=== PATIENT | female | born 1985 | race Two or more races ===

== ENCOUNTER 2019-04-18 10:55 | Emergency (ER) | payer OTHER ==
[2019-04-18 11:12] VITALS: BP 133/89; PULSE 68; TEMP 98.4; BMI 27.4
[2019-04-18] MEDS ORDERED: KETOROLAC TROMETHAMINE 60 MG/2 ML VIAL IM ONE (11:42)
[2019-04-18] MEDS ORDERED: KETOROLAC TROMETHAMINE 60 MG/2 ML VIAL ONE (11:44)
--- NOTE | 2019-04-18 12:14 | PDOC ---
Attending Attestation - Resident Resident Name: Nicko Huff - HPI HPI: 04/18/19 12:09 Pt presents to the ED complaining of a three week history of cough productive of green sputum. Denies fevers. Presents today because she is having R sided pleuritic flank pain. Denies nausea, vomiting or urinary complaints. - Physicial Exam PE: 04/18/19 12:13 Agree with resident exam. Gen: alert, NAD. pulm: CTA b/l, with good air entry. + point tenderness over L posterior intercostal muscles - Medical Decision Making 04/18/19 12:14 Pt presents to the ED with pleuritic upper back pain after long standing URI. No signs suspcious for PE or ACS. Will check cxr to rule out ptx, rib fx or PNA , give pain control, likely discharge if negative. 04/18/19 12:14 04/18/19 12:15
--- NOTE | 2019-04-18 12:19 | PDOC ---
History of Present Illness - General Chief Complaint: Respiratory Stated Complaint: COUGH Time Seen by Provider: 04/18/19 11:03 - History of Present Illness Initial Comments: 04/18/19 11:48 HPI: 33 y/o with hx of asthma presenting with cough x2.5 weeks and right flank pain x4 days. She states the cough was initially non-productive and worse in the evening and when sleeping. She attempted nebs treatment and had seen an urgent care and was given a steroid pack but that did not alleviate symptoms. She denies fever, chills, chest pain, SOB, palpitations, n/v, abd pain. Cough is not exertional. She denies rhinorrhea, sore throat, congestion, MODI. She states 4 days ago her cough became productive of green sputum and she developed left sided flank/back pain without radiation. She denies rash, skin changes, lumps, dysuria, hematuria. PMHx: as noted above ROS: as noted SHx: Denies tobacco use; occasional alcohol use; no rec drugs Allergies: NKDA ROS: GENERAL/CONSTITUTIONAL: No fever or chills. No weakness. HEAD, EYES, EARS, NOSE AND THROAT: No change in vision. No ear pain or discharge. No sore throat. CARDIOVASCULAR: No chest pain or shortness of breath RESPIRATORY: +cough; no wheezing, or hemoptysis. GASTROINTESTINAL: No nausea, vomiting, diarrhea or constipation. GENITOURINARY: No dysuria, frequency, or change in urination. MUSCULOSKELETAL: No joint or muscle swelling or pain. No neck or back pain. SKIN: No rash NEUROLOGIC: No headache, vertigo, loss of consciousness, or change in strength/ sensation. ENDOCRINE: No increased thirst. No abnormal weight change HEMATOLOGIC/LYMPHATIC: No anemia, easy bleeding, or history of blood clots. ALLERGIC/IMMUNOLOGIC: No hives or skin allergy. PE: GENERAL: Awake, alert, and fully oriented, no acute distress HEAD: No signs of trauma, normocephalic, atraumatic EYES: EOMI, sclera anicteric, conjunctiva clear ENT: Auricles normal inspection, hearing grossly normal, nares patent, oropharynx clear without exudates. Moist mucosa NECK: Normal ROM, no lymphadenopathy LUNGS: No increased work of breathing, symmetrical chest rise, clear to auscultation bilaterally, no wheezes, crackles or rhonchi HEART: Regular rate and rhythm, normal S1 and S2, no murmurs, peripheral pulses 2+ and equal bilaterally. ABDOMEN: Soft, nondistended, nontender, normoactive bowel sounds. No guarding, no rebound. No masses. No CVAT EXTREMITIES: Normal inspection, Normal range of motion, no edema. No clubbing or cyanosis. NEUROLOGICAL: Cranial nerves II through XII grossly intact. Normal speech, normal gait, no focal sensorimotor deficits SKIN: Warm, Dry, normal turgor, no rashes or lesions noted Past History - Past Medical History Allergies/Adverse Reactions: Allergies Allergy/AdvReac Type Severity Reaction Status Date / Time latex Allergy Verified 04/18/19 11:06 Penicillins Allergy Verified 04/18/19 11:06 Home Medications: Ambulatory Orders Albuterol Sulfate Inhaler - [Ventolin HFA Inhaler -] 2 inh IH Q4H PRN #1 inh Norethindrone AC-Eth Estradiol [Loestrin 21 1-20 Tablet] 1 each PO DAILY Benzonatate [Tessalon Pearls -] 100 mg PO TID #21 capsule 04/18/19 Asthma: Yes COPD: No - Psycho Social/Smoking Cessation Hx Smoking Status: No Smoking History: Never smoked Number of Cigarettes Smoked Daily: 0 Hx Alcohol Use: No Drug/Substance Use Hx: No *Physical Exam - Vital Signs Last Vital Signs Temp Pulse Resp BP Pulse Ox 98.4 F 68 15 133/89 98 04/18/19 11:02 04/18/19 11:02 04/18/19 11:02 04/18/19 11:02 04/18/19 11:02 ED Treatment Course - RADIOLOGY Radiology Studies Ordered: Category Date Time Status CHEST PA & LAT [RAD] Stat Radiology 04/18/19 11:42 Ordered Medical Decision Making - Medical Decision Making 04/18/19 12:18 33 y/o with hx of asthma presenting with cough x2.5 weeks now productive over the past 4 days with right flank/back pain x4 days. VSS, AF. PE unremarkable. Will rule out PNA. Pain likely due to MSK strain from coughing -cxr -toradol 04/18/19 12:28 cxr negative pain tolerable following medication discussed results with patient and she is comfortable with DC and return pcxns Discharge - Discharge Information Problems reviewed: Yes Clinical Impression/Diagnosis: Cough, Musculoskeletal pain Condition: Good Disposition: HOME - Additional Discharge Information Prescriptions: Benzonatate [Tessalon Pearls -] 100 mg PO TID #21 capsule - Follow up/Referral Referrals: Vincent Vazquez MD [Primary Care Provider] - - Patient Discharge Instructions Patient Printed Discharge Instructions: DI for Cough -- Adult, DI for Musculoskeletal Pain Additional Instructions: Return to the ED if there is concern for new or worsening symptoms including fever, coughing blood, significant chest pain. You may followup with your PCP as needed. Please followup for resolution of symptoms as well as additional management You may take tylenol 650mg every 6-8hours and mtorin 600mg every 6-8 hours as needed for pain control. You may take the tessalon perlsami that was sent to you pharmacy - Post Discharge Activity
== END 2019-04-18 12:39 | disposition home or self-care (01) ==
LOC: FER 10:55
PROC: 3E0233Z Introduction of Anti-inflammatory into Muscle, Percutaneous Approach (ICD-10-PCS; principal; 2019-04-18)
DX: M79.18 Myalgia, other site (principal); J45.909 Unspecified asthma, uncomplicated; R05 Cough; Z88.0 Allergy status to penicillin; Z91.040 Latex allergy status
CPT/HCPCS: 71046-TC-FY; 99281-25

== ENCOUNTER 2019-04-20 17:49 | Emergency (ER) | payer OTHER ==
[2019-04-20 19:00] VITALS: BP 134/78; PULSE 72; TEMP 98.4; BMI 28.3
--- NOTE | 2019-04-20 22:05 | PDOC ---
Documentation entered by Rebecca Magallon SCRIBE, acting as scribe for Jose Mckeon MD. Jose Mckeon MD: This documentation has been prepared by the maguiibe, Rebecca Magallon SCRIBE, under my direction and personally reviewed by me in its entirety. I confirm that the documentation accurately reflects all work , treatment, procedures, and medical decision making performed by me. History of Present Illness - General Chief Complaint: Pain, Acute Stated Complaint: RIGHT SIDE PAIN History Source: Patient Exam Limitations: No Limitations - History of Present Illness Initial Comments: 04/20/19 20:39 The patient is a 33-year-old female who presents to the emergency department with worsening right flank pain. The patient reports shes been having 3 weeks of cough. The patient reports following up at an Urgent Care last Thursday was prescribed Prednisone for possible asthma exacerbation. The patient reports being compliant for 3/4 days however, she wasnt having any shortness of breath , so she stopped the medication. The patient reports the cough, and the right- sided flank pain worsened, so she was seen at the ER on 04/18. The patient reports given medication for the pain, with relief, and discharged home with Rey Valentine. The patient reports the flank pain has been worsening, with no relief with Ibuprofen. Denies shortness of breath. Denies nausea. Denies urinary symptoms. Denies a family history of Kidney stones. PAST MEDICAL HISTORY: asthma PAST SURGICAL HISTORY: no significant history FAMILY HISTORY: no pertinent history SOCIAL HISTORY: Pt lives with family and is employed. MEDICATIONS: reviewed ALLERGIES: As per nursing notes Review of system: General: No fevers or chills, no weakness, no weight loss HEENT: No change in vision. No sore throat,. No ear pain CardioVascular: No chest pain or shortness of breath Respiratory: +cough. No wheezing. Gastrointestinal: +right flank pain. no nausea, vomiting, diarrhea or constipation, No rectal bleeding Genitourinary: No dysuria, hematuria, or frequency Musculoskeletal: No joint or muscle pain or swelling Neurologic: No headache, vertigo, dizziness or loss of consciousness Psychiatric: nor depression Skin: No rashes or easy bruising Endocrine: no increased thirst or abnormal weight change Allergic: no skin or latex allergy All other systems reviewed and normal Physical exam: General: Well-nourished well-developed individual, no acute distress HEENT: Throat: Normal, tonsils normal, no erythema or exudate Neck: Supple, no meningeal signs, no lymphadenopathy Eyes: Pupils equal reactive and round, extraocular motion intact Chest: Nontender to palpation Cardiac: S1-S2 normal, regular rate and rhythm, no murmurs rubs or gallops Respiratory: Lungs clear to auscultation bilateral Abdomen: +no right CVA tenderness, Right flank tenderness. No abd tenderness. Soft. Extremities: Warm, dry, no cyanosis, clubbing, or edema Skin: No rashes Neuro: Alert and oriented x3, nonfocal exam, grossly intact, normal gait Psych: Normal mood and affect 04/20/19 22:02 Assessment and plan: This is a 33-year-old female who comes in complaining of right flank pain. Patient has had a upper respiratory tract infection for several weeks and now has right flank pain. Most likely this is secondary to her coughing and a pulled muscle however I will get a stone protocol CT to rule out a kidney stone and check her urine. Patient did have a chest x-ray yesterday that was negative for any acute pathology. Patient also is on Tessalon Perles and a anti-inflammatory for the pain. CAT scan was negative for kidney stones. It does show a small adrenal adenoma which patient was made aware of and given a copy of her CAT scan and told to follow it up with her primary care doctor. Patient discharged home told to take an anti-inflammatory and follow-up with her primary care doctor Past History - Past Medical History Allergies/Adverse Reactions: Allergies Allergy/AdvReac Type Severity Reaction Status Date / Time latex Allergy Verified 04/20/19 19:02 Penicillins Allergy Verified 04/20/19 19:02 Home Medications: Ambulatory Orders Norethindrone AC-Eth Estradiol [Loestrin 21 1-20 Tablet] 1 each PO DAILY Asthma: Yes COPD: No - Psycho Social/Smoking Cessation Hx Smoking Status: No Smoking History: Never smoked Number of Cigarettes Smoked Daily: 0 Hx Alcohol Use: Yes (OCASIONAL) Drug/Substance Use Hx: No *Physical Exam - Vital Signs Last Vital Signs Temp Pulse Resp BP Pulse Ox 98.4 F 72 16 134/78 100 04/20/19 17:49 04/20/19 17:49 04/20/19 17:49 04/20/19 17:49 04/20/19 17:49 ED Treatment Course - RADIOLOGY Radiology Studies Ordered: Category Date Time Status SPIRAL- RENAL-STONE CT [CT] Stat CT Scan 04/20/19 20:32 Completed Discharge - Discharge Information Problems reviewed: Yes Clinical Impression/Diagnosis: Musculoskeletal pain, Right flank pain Condition: Stable - Admission No - Follow up/Referral - Patient Discharge Instructions Additional Instructions: For the pain take naproxen 2 tablets twice a day with food. Take a copy of your CAT scan to your primary care doctor in follow-up of the adrenal adenoma. Return to the emergency department immediately with ANY new, persistent or worsening symptoms. Continue any medications as previously prescribed by your physician. You should follow up with your primary doctor as soon as possible regarding today's emergency department visit. . Please make sure your doctor reviews the results of your emergency evaluation. Thank you for coming to the Emergency Department today for your care. It was a pleasure to see you today. Please note that your evaluation is INCOMPLETE until you follow-up with your doctor. - Post Discharge Activity
== END 2019-04-20 22:46 | disposition home or self-care (01) ==
LOC: FER 17:49
DX: M79.10 Myalgia, unspecified site (principal); R10.31 Right lower quadrant pain; Z88.0 Allergy status to penicillin; Z91.040 Latex allergy status
CPT/HCPCS: 74176-TC; 81003; 81015; 99283-25

== ENCOUNTER 2021-04-27 14:20 | Emergency (ER) | payer OTHER ==
[2021-04-27 14:42] VITALS: BMI 26.6
[2021-04-27] MEDS ORDERED: SODIUM CHLORIDE 0.9% 500 ML INFUS.BAG IV ONE (15:30)
[2021-04-27] MEDS ORDERED: ONDANSETRON 4 MG/2 ML VIAL IVPUSH ONE (15:30)
[2021-04-27] MEDS ORDERED: ACETAMINOPHEN 1000 MG/100 ML VIAL IVPB ONE (15:31)
[2021-04-27] MEDS ORDERED: ACETAMINOPHEN INJECTION 100 ML IVPB ONE (16:15)
[2021-04-27] MEDS ORDERED: ONDANSETRON 4 MG/2 ML VIAL ONE (16:15)
[2021-04-27 16:41] LABS: BASO % 0.3 % (0-2.0); HEMATOCRIT 42.9 % (32.4-45.2); HEMOGLOBIN 14.3 GM/dL (10.7-15.3); LYMPH % 19.5 % (8-40); MCH 28.6 pg (25.7-33.7); MCHC 33.3 g/dl (32.0-36.0); MEAN PLT VOLUME 8.7 fl (7.5-11.1); MONO % 13.4 % (3.8-10.2); NEUT % 66.8 % (42.8-82.8); PLATELET COUNT 177 10^3/uL (134-434); RBC 4.99 M/mm3 (3.60-5.2); RDW 12.9 % (11.6-15.6); WHITE BLOOD COUNT 3.3 K/mm3 (4.0-10.0)
[2021-04-27 17:02] LABS: ALBUMIN 3.6 g/dl (3.4-5.0); BLOOD UREA NITROGEN 7.3 mg/dL (7-18); CALCIUM 8.5 mg/dL (8.5-10.1)
[2021-04-27 17:06] LABS: CREATININE 0.9 mg/dL (0.55-1.3)
[2021-04-27 17:07] LABS: BILIRUBIN,TOTAL 1.1 mg/dL (0.2-1); TOT PROT 8.3 g/dl (6.4-8.2)
[2021-04-27 18:12] VITALS: BP 96/57; PULSE 79; TEMP 99.1
== END 2021-04-27 18:13 | disposition home or self-care (01) ==
LOC: JER 14:20
PROC: 3E0333Z Introduction of Anti-inflammatory into Peripheral Vein, Percutaneous Approach (ICD-10-PCS; principal; 2021-04-27)
PROC: 3E033GC Introduction of Other Therapeutic Substance into Peripheral Vein, Percutaneous Approach (ICD-10-PCS; 2021-04-27)
DX: U07.1 COVID-19 (principal); R11.2 Nausea with vomiting, unspecified
CPT/HCPCS: 36415; 80053; 85025; 99284-25; J0131